=== PATIENT | female | born 1950 ===

== ENCOUNTER → 2017-01-10 | Outpatient (CLI) | payer MEDICARE, BC ==
[2017-01-10 10:25] LABS: ALBUMIN 4.2 gm/dL (3.5-5.0); ANION GAP 10.9 (10.0-19.0); CALCIUM 8.8 mg/dL (8.5-10.5); CREATININE 1.1 mg/dL (0.5-1.1); POTASSIUM 3.9 mMol/L (3.7-5.1); TOTAL BILIRUBIN 0.9 mg/dL (0.0-1.5); TOTAL PROTEIN 7.4 g/dL (6.0-8.4)
== END | disposition disaster alternative care site (69) ==
LOC: LNHI 10:06
PROVIDERS: Internal Medicine Interventional Cardiology
DX: I10 Essential (primary) hypertension (principal)